=== PATIENT | male | born 1990 | race Caucasian/White ===

== ENCOUNTER 2017-07-09 08:05 | Emergency (ER) | payer MEDICAID ==
[2017-07-09] MEDS: KETOROLAC 60 MG INJ IM (08:48)
== END 2017-07-09 10:35 | disposition home or self-care (01) ==
LOC: FTE 08:05
DX: S93.402A Sprain of unspecified ligament of left ankle, initial encounter (principal); X58.XXXA Exposure to other specified factors, initial encounter; Y92.9 Unspecified place or not applicable
CPT/HCPCS: 73610; 96372; 99284-25